=== PATIENT | male | born 1980 | race Caucasian/White ===

== ENCOUNTER 2016-06-17 09:01 | Emergency (ER) | payer OTHER ==
[~2016-06-17] VITALS: Ht 167.6 cm; Wt 88.0 kg
[2016-06-17] MEDS ORDERED: MOBIC15 MG PO (09:08)
[2016-06-17] MEDS ORDERED: TRAMADOL HCL50 MG PO (11:04)
[2016-06-17] MEDS ORDERED: FLEXERIL10 MG PO (11:10)
[2016-06-17 11:34] VITALS: BP 167/92
== END 2016-06-17 11:34 | disposition home or self-care (01) ==
LOC: EME → EDBD 09:01 → EME 09:01
DX: S39.012A Strain of muscle, fascia and tendon of lower back, initial encounter (principal); V49.40XA Driver injured in collision with unspecified motor vehicles in traffic accident, initial encounter; Y92.410 Unspecified street and highway as the place of occurrence of the external cause; Z87.891 Personal history of nicotine dependence
CPT/HCPCS: 72100; 99281; 99284